=== PATIENT | male | born 1980 | race Caucasian/White ===

== ENCOUNTER 2018-05-31 12:08 | Outpatient (CLI) | payer BC, SELFPAY ==
[2018-05-31 14:20] LABS: Anion Gap 10.1 mmol/L (3-11); CO2 28.9 mmol/L (21.0-32.0); Chloride 100 mmol/L (98-107); Potassium 4.1 mmol/L (3.5-5.1); Sodium 139 mmol/L (136-145)
== END 2018-05-31 12:28 ==
PROVIDERS: PCP Family Medicine; Visit Provider Family Medicine
DX: R42 Dizziness and giddiness (principal)
CPT/HCPCS: 36415; 80051

== ENCOUNTER 2018-08-23 01:25 | Outpatient (CLI) | payer BC, SELFPAY ==
[2018-08-23 16:53] LABS: Anion Gap 5.6 mmol/L (3-11); CO2 32.4 mmol/L (21.0-32.0); Chloride 103 mmol/L (98-107); Potassium 4.5 mmol/L (3.5-5.1); Sodium 141 mmol/L (136-145)
[2018-09-01 21:36] LABS: Result Summary NEGATIVE; Specimen WB Whole Blood
== END 2018-08-23 01:45 ==
PROVIDERS: PCP Family Medicine; Visit Provider Obstetrics & Gynecology Gynecology
DX: R42 Dizziness and giddiness (principal); Z13.228 Encounter for screening for other metabolic disorders
CPT/HCPCS: 36415; 80051; 81220

== ENCOUNTER 2019-10-15 15:01 | Outpatient (REF) | payer BC, SELFPAY ==
[2019-10-16 10:58] LABS: Campylobacter PCR Negative (Negative); Salmonella PCR Negative (Negative); Shiga Toxin PCR Negative (Negative); Shigella/Enteroinvasive Ecoli Negative (Negative)
== END 2019-10-15 15:21 ==
LOC: LBN 15:01
PROVIDERS: PCP Family Medicine; Visit Provider Family Medicine
DX: R19.7 Diarrhea, unspecified (principal)
CPT/HCPCS: 87329; 87505

== ENCOUNTER 2020-07-16 04:56 | Outpatient (CLI) | payer BC, SELFPAY ==
[2020-07-16 15:15] LABS: Calculated LDL 84 mg/dL (<100); Cholesterol 183 mg/dL (<200); Glucose 109 mg/dL (74-106); HDL Cholesterol 92 mg/dL (40-60); Triglyceride 38 mg/dL (<150)
== END 2020-07-16 05:16 ==
PROVIDERS: PCP Family Medicine; Visit Provider Family Medicine
DX: E78.5 Hyperlipidemia, unspecified (principal); R73.9 Hyperglycemia, unspecified; E03.9 Hypothyroidism, unspecified
CPT/HCPCS: 36415; 80061; 82947; 84443

== ENCOUNTER 2021-12-12 18:57 | Outpatient (REF) | payer SELFPAY ==
[2021-12-14 14:42] LABS: Chlamydia Result Negative (Negative); GC Result Negative (Negative)
== END 2021-12-12 18:58 | disposition home or self-care (01) ==
LOC: LBN 18:57
PROVIDERS: PCP Family Medicine; Visit Provider Physician Assistant
DX: Z11.3 Encounter for screening for infections with a predominantly sexual mode of transmission (principal)
CPT/HCPCS: 87491; 87591